=== PATIENT | male | born 1980 | race Caucasian/White ===

== ENCOUNTER 2021-02-08 08:35 | Emergency (ER) | payer BC ==
--- NOTE | 2021-02-08 09:26 | EDM.PDOC ---
ED HPI GENERAL MEDICAL PROBLEM - General Chief Complaint: Neurological Problem Stated Complaint: FALL/LEFT SIDE NUMBNESS Time Seen by Provider: 02/08/21 09:00 Source of Information: Reports: Patient History Limitations: Reports: No Limitations - History of Present Illness INITIAL COMMENTS - FREE TEXT/NARRATIVE: Presented with a fainting spell. Was in the shower this morning and initially felt kind of lightheaded and nausea and was able to sit's sit forward somewhat in the shower he started to feel better the needle which shampooed his head and then when he was rinsing off his head also any passed out. He injured his left armpit on the way down but denies any head injury. No loss of bowel or bladder control. He woke up not long after that and felt like his arms were both were tingly as far as gripping and curling of his fingers bilaterally with numbness. He also felt like his total face was numb. No double vision or blurry vision no headaches no neck pain did not hit his head. Patient has been feeling ill since week ago when he had onset of flulike symptoms including fevers, aches, nausea. Has been generally more fatigued than usual. He has occasional dry hacking cough denies any major shortness of breath or breathing problems. Denies chest pain no history of any heart disease. Otherwise healthy male, non-smoker. Nauseated in the shower vomiting is negative, no abdominal pain no diarrhea no burning pain or blood in the urine currently otherwise no other muscle aches or focal weakness no vision changes. Onset: Sudden Left Arm Pain Score (Numeric/FACES): 2 - Related Data Allergies Allergy/AdvReac Type Severity Reaction Status Date / Time No Known Allergies Allergy Verified 02/08/21 08:53 Home Meds: Home Meds . [No Known Home Meds] 02/08/21 [History] Benzonatate [Tessalon Perle] 100 mg PO Q8HR PRN #20 capsule 02/08/21 [Rx] Naproxen [Naprosyn] 500 mg PO Q12HR #30 tab 02/08/21 [Rx] Ondansetron [Zofran ODT] 4 mg PO Q6H PRN #12 tab.dis 02/08/21 [Rx] Past Medical History - Past Health History Medical/Surgical History: Denies Medical/Surgical History Social & Family History - Tobacco Use Tobacco Use Status *Q: Never Tobacco User Second Hand Smoke Exposure: No - Caffeine Use Caffeine Use: Reports: Coffee - Recreational Drug Use Recreational Drug Use: No ED ROS GENERAL - Review of Systems Review Of Systems: See Below Constitutional: Reports: Fever, Fatigue. Denies: Diaphoresis HEENT: Denies: Eye Discharge, Vision Change Respiratory: Reports: Cough. Denies: Shortness of Breath, Sputum Cardiovascular: Reports: Lightheadedness, Syncope. Denies: Chest Pain, Blood Pressure Problem, Edema, PND Endocrine: Reports: Fatigue GI/Abdominal: Reports: Nausea. Denies: Abdominal Pain, Diarrhea, Vomiting : Denies: Dysuria, Frequency Musculoskeletal: Reports: Shoulder Pain. Denies: Neck Pain, Muscle Stiffness Skin: Reports: No Symptoms Neurological: Reports: Numbness, Paresthesia, Tingling. Denies: Confusion, Dizziness, Headache, Trouble Speaking, Difficulty Walking, Gait Disturbance Psychiatric: Reports: No Symptoms ED EXAM, NEURO - Physical Exam Exam: See Below Exam Limited By: No Limitations General Appearance: Alert, WD/WN, No Apparent Distress Eye Exam: Bilateral Eye: EOMI, PERRL Throat/Mouth: Normal Inspection, Normal Oropharynx, Normal Voice Head Exam: Atraumatic Neck: Normal Inspection, Supple, Non-Tender Respiratory/Chest: No Respiratory Distress, Lungs Clear, Normal Breath Sounds Cardiovascular: Normal Peripheral Pulses, Regular Rate, Rhythm GI/Abdominal: Normal Bowel Sounds, Soft, Non-Tender, No Distention Neurological: Alert, Normal Mood/Affect, Normal Dorsiflexion, CN II-XII Intact, Normal Plantar Flexion, No Motor/Sensory Deficits, Oriented x 3 Back Exam: Normal Inspection Extremities: Normal Inspection, No Pedal Edema Psychiatric: Normal Affect, Normal Mood Skin Exam: Warm, Dry Course - Vital Signs Text/Narrative:: Syncopal episode sounds like he has been feeling ill recently rule out Covid, dehydration, denies chest pain seems likely have low risk for acute coronary syndrome will screen and EKG to rule out arrhythmia, IA seems less likely, does not sound like a seizure, no neurologic deficits seems unlikely a stroke syndrome, electrolyte abnormalities of hospital including low blood sugar, anemia. Last Recorded V/S: Last Vital Signs Temp 97.5 F 02/08/21 08:51 Pulse 75 02/08/21 08:51 Resp 18 02/08/21 08:51 BP 111/74 10/02/21 08:51 Pulse Ox 96 02/08/21 08:51 Orthostatic Blood Pressure [ 118/74 Standing] Orthostatic Blood Pressure [ 127/76 Sitting] Orthostatic Blood Pressure [ 116/76 Supine] - Orders/Labs/Meds Labs: Laboratory Tests 02/08/21 02/08/21 02/08/21 Range/Units 08:45 09:45 09:45 WBC 2.20 L* (4.23-9.07) K/mm3 RBC 4.93 (4.63-6.08) M/mm3 Hgb 14.6 (13.7-17.5) gm/dl Hct 45.0 (40.1-51.0) % MCV 91.3 (79.0-92.2) fl MCH 29.6 (25.7-32.2) pg MCHC 32.4 (32.2-35.5) g/dl RDW Std Deviation 45.0 H (35.1-43.9) fL Plt Count 70 L (163-337) K/mm3 MPV 11.2 (9.4-12.3) fl Neut % (Auto) 69.9 H (34.0-67.9) % Lymph % (Auto) 21.4 L (21.8-53.1) % Cook % (Auto) 8.2 (5.3-12.2) % Eos % (Auto) 0 L (0.8-7.0) Baso % (Auto) 0.5 (0.1-1.2) % Neut # (Auto) 1.54 L (1.78-5.38) K/mm3 Lymph # (Auto) 0.47 L (1.32-3.57) K/mm3 Cook # (Auto) 0.18 L (0.30-0.82) K/mm3 Eos # (Auto) 0.00 L (0.04-0.54) K/mm3 Baso # (Auto) 0.01 (0.01-0.08) K/mm3 Manual Slide Review Abnormal smear Sodium 138 (136-145) mEq/L Potassium 3.8 (3.5-5.1) mEq/L Chloride 102 (98-107) mEq/L Carbon Dioxide 27 (21-32) mEq/L Anion Gap 12.8 (5-15) BUN 16 (7-18) mg/dL Creatinine 1.0 (0.7-1.3) mg/dL Est Cr Clr Drug Dosing 105.63 mL/min Estimated GFR (MDRD) > 60 (>60) mL/min BUN/Creatinine Ratio 16.0 (14-18) Glucose 105 H (70-99) mg/dL Calcium 8.5 (8.5-10.1) mg/dL Total Bilirubin 0.6 (0.2-1.0) mg/dL AST 26 (15-37) U/L ALT 27 (16-63) U/L Alkaline Phosphatase 42 L (46-116) U/L C-Reactive Protein 1.1 H* (<1.0) mg/dL Total Protein 7.8 (6.4-8.2) g/dl Albumin 4.0 (3.4-5.0) g/dl Globulin 3.8 gm/dL Albumin/Globulin Ratio 1.1 (1-2) Urine Color (Yellow) Urine Appearance (Clear) Urine pH (5.0-8.0) Ur Specific [place] (1.005-1.030) Urine Protein (Negative) Urine Glucose (UA) (Negative) Urine Ketones (Negative) Urine Occult Blood (Negative) Urine Nitrite (Negative) Urine Bilirubin (Negative) Urine Urobilinogen (0.2-1.0) Ur Leukocyte Esterase (Negative) Urine RBC (0-5) /hpf Urine WBC (0-5) /hpf Ur Squamous Epith Cells (0-5) /hpf Urine Bacteria (FEW) /hpf Urine Mucus (FEW) /hpf SARS-CoV-2 RNA (MÓNICA) Positive H (NEGATIVE) 02/08/21 Range/Units 11:46 WBC (4.23-9.07) K/mm3 RBC (4.63-6.08) M/mm3 Hgb (13.7-17.5) gm/dl Hct (40.1-51.0) % MCV (79.0-92.2) fl MCH (25.7-32.2) pg MCHC (32.2-35.5) g/dl RDW Std Deviation (35.1-43.9) fL Plt Count (163-337) K/mm3 MPV (9.4-12.3) fl Neut % (Auto) (34.0-67.9) % Lymph % (Auto) (21.8-53.1) % Cook % (Auto) (5.3-12.2) % Eos % (Auto) (0.8-7.0) Baso % (Auto) (0.1-1.2) % Neut # (Auto) (1.78-5.38) K/mm3 Lymph # (Auto) (1.32-3.57) K/mm3 Cook # (Auto) (0.30-0.82) K/mm3 Eos # (Auto) (0.04-0.54) K/mm3 Baso # (Auto) (0.01-0.08) K/mm3 Manual Slide Review Sodium (136-145) mEq/L Potassium (3.5-5.1) mEq/L Chloride (98-107) mEq/L Carbon Dioxide (21-32) mEq/L Anion Gap (5-15) BUN (7-18) mg/dL Creatinine (0.7-1.3) mg/dL Est Cr Clr Drug Dosing mL/min Estimated GFR (MDRD) (>60) mL/min BUN/Creatinine Ratio (14-18) Glucose (70-99) mg/dL Calcium (8.5-10.1) mg/dL Total Bilirubin (0.2-1.0) mg/dL AST (15-37) U/L ALT (16-63) U/L Alkaline Phosphatase (46-116) U/L C-Reactive Protein (<1.0) mg/dL Total Protein (6.4-8.2) g/dl Albumin (3.4-5.0) g/dl Globulin gm/dL Albumin/Globulin Ratio (1-2) Urine Color Yellow (Yellow) Urine Appearance Clear (Clear) Urine pH 6.5 (5.0-8.0) Ur Specific [place] 1.020 (1.005-1.030) Urine Protein Trace H (Negative) Urine Glucose (UA) Negative (Negative) Urine Ketones Negative (Negative) Urine Occult Blood Negative (Negative) Urine Nitrite Negative (Negative) Urine Bilirubin Negative (Negative) Urine Urobilinogen 0.2 (0.2-1.0) Ur Leukocyte Esterase Negative (Negative) Urine RBC 0-5 (0-5) /hpf Urine WBC 0-5 (0-5) /hpf Ur Squamous Epith Cells 0-5 (0-5) /hpf Urine Bacteria Few (FEW) /hpf Urine Mucus Few (FEW) /hpf SARS-CoV-2 RNA (MÓNICA) (NEGATIVE) Meds: Medications Discontinued Medications Generic Name Dose Route Start Last Admin Trade Name Freq PRN Reason Stop Dose Admin Diphenhydramine HCl 50 mg 02/08/21 11:35 Diphenhydramine 50 Mg/Ml Sdv IVPUSH ONETIME PRN hypersensitivity reaction Epinephrine HCl 0.3 mg 02/08/21 11:35 Epinephrine 1 Mg/Ml Sdv IM ONETIME PRN hypersensitivity reaction Famotidine 20 mg 02/08/21 11:35 Famotidine 20 Mg/2 Ml Sdv IVPUSH ONETIME PRN hypersensitivity reaction Sodium Chloride 1,000 mls @ 999 mls/hr 02/08/21 09:28 02/08/21 09:50 Normal Saline IV 02/08/21 10:28 999 mls/hr ONETIME ONE Administration CASIRIVIMAB/IMDEVIMAB 10 ml/ 110 mls @ 220 mls/hr 02/08/21 11:45 02/08/21 12:21 Sodium Chloride IV 02/08/21 12:14 220 mls/hr ONETIME ONE Administration Methylprednisolone Sodium Succinate 125 mg 02/08/21 11:35 Methylprednisolone Sodium Succinate 125 Mg/2 Ml Sdv IVPUSH ONETIME PRN hypersensitivity reaction Sodium Chloride 30 ml 02/08/21 11:45 Sodium Chloride 0.9% 10 Ml Syringe FLUSH ASDIRECTED LOR - Radiology Interpretation Free Text/Narrative:: White count is 2200 hemoglobin 14.6-45 platelet count is 70 lites are low at 21.4 number actually at 0.47 with low monocytes. Sodium 138 potassium 3.8 chloride CO2 are normal BUN is 16 creatinine 1, GFR is good blood sugar 105 LFTs are normal, C-reactive protein 1.1 Urinalysis spec of 1.020 trace protein else negative. 2 views of the right hip and pelvis are unremarked for any acute fracture or dislocation. - Re-Assessments/Exams Free Text/Narrative Re-Assessment/Exam: 02/08/21 13:44 Patient received the Regeneron risk/fact sheet understands the risk versus benefits and based on his white count low and symptomatology feel that he would benefit and he is agreeable he received the Regeneron without difficulty will discharge home will make sure you drink plenty of fluids. Currently I do not see any signs for any prolonged QT syndrome, no Brugada syndrome no other acute findings other than suspected orthostasis as some of the etiology of his fall and syncopal episode today recommend follow-up and return precautions given. Departure - Departure Time of Disposition: 13:45 Disposition: Home, Self-Care 01 Condition: Good Clinical Impression: Syncope and collapse, COVID Contusion, hip Qualifiers: Encounter type: initial encounter Laterality: right Qualified Code(s): S70.01XA - Contusion of right hip, initial encounter - Discharge Information Prescriptions: Naproxen [Naprosyn] 500 mg PO Q12HR #30 tab Benzonatate [Tessalon Perle] 100 mg PO Q8HR PRN #20 capsule PRN Reason: Cough Ondansetron [Zofran ODT] 4 mg PO Q6H PRN #12 tab.dis PRN Reason: Nausea Instructions: COVID-19 Frequently Asked Questions, What You Should Know About COVID-19 to Protect Yourself and Others - CDC, Dehydration, Adult, [id number], Symptoms of COVID-19 - CDC (07/01/2020), Syncope, [id number] Referrals: PCP,None [Primary Care Provider] - Forms: ED Department Discharge Additional Instructions: Rest, drink plenty of water and fluids. May take Zofran as directed for nausea and vomiting, Naprosyn 500 mg twice a day for aches and pains, will try Tessalon Perles 1 up to 3 times a day for coughing. Phone follow-up with your primary care physician in the next week especially if not better Return to the emergency department with any recurrent fainting spell, weakness, increasing work of breathing, shortness of breath, persistent fever greater than 102, vomiting and unable to keep down fluids or worsening.
[2021-02-08] MEDS ORDERED: Sodium Chloride 0.9% 1,000 ML IV ONE (09:28)
[2021-02-08] MEDS ORDERED: methylPREDNISolone Sodium Succinate 125 MG/2 ML SDV IVPUSH PRN (11:35)
[2021-02-08] MEDS ORDERED: diphenhydrAMINE 50 MG/ML SDV IVPUSH PRN (11:35)
[2021-02-08] MEDS ORDERED: Famotidine 20 MG/2 ML SDV IVPUSH PRN (11:35)
[2021-02-08] MEDS ORDERED: EPINEPHrine 1 MG/ML SDV IM PRN (11:35)
[2021-02-08] MEDS ORDERED: Sodium Chloride 0.9% 10 ML Syringe FLUSH SCH (11:45)
--- NOTE | 2021-02-09 08:43 | CR ---
Chest: Portable view of the chest was obtained. Comparison: No prior chest imaging is available. Heart size and mediastinum are within normal limits. Lungs are clear with no acute parenchymal change. Bony structures show nothing acute. Impression: 1. Nothing acute is seen on frontal chest x-ray. Diagnostic code #1
--- NOTE | 2021-02-09 08:48 | CR ---
Right hip: AP and frog leg lateral views of the right hip were obtained. Comparison: No prior right hip study is available. Two small cysts are noted within the femoral neck. These are believed to be incidental. Joint space within the right hip is preserved. Small calcification is noted off the superior acetabulum which is believed to be incidental. Visualized sacroiliac joints are normal. No acute fracture or subluxation is seen. Impression: 1. Findings believed to be incidental as described above. 2. Nothing acute is seen on a 2-view right hip exam. Diagnostic code #2
== END 2021-02-08 14:39 | disposition home or self-care (01) ==
LOC: JD.ED 08:35
DX: S70.01XA Contusion of right hip, initial encounter (principal); U07.1 COVID-19; R55 Syncope and collapse; W18.39XA Other fall on same level, initial encounter
CPT/HCPCS: 36415; 71045; 73502; 80053; 81001; 85025; 86140; 87635; 93005; 99284; J7030; M0243; Q0243; U0002